=== PATIENT | female | born 1940 | race Caucasian/White ===

== ENCOUNTER 2020-12-12 10:31 | Emergency (ER) | payer MEDICARE ==
[2020-12-12] MEDS ORDERED: SODIUM CHLORIDE 0.9% 1,000 ML IV STA (11:31)
[2020-12-12] MEDS ORDERED: ONDANSETRON 4 MG/2 ML VIAL IVP STA (11:31)
[2020-12-12] MEDS ORDERED: MORPHINE SULFATE 2 MG/ML SYRINGE IVP STA (11:31)
--- NOTE | 2020-12-12 12:08 | XR ---
EXAMINATION TYPE: XR chest 2V DATE OF EXAM: 12/12/2020 COMPARISON: Chest x-ray 01/12/2017 HISTORY: Cough, Covid positive TECHNIQUE: Frontal and lateral views of the chest are obtained. FINDINGS: Patchy densities present in the bilateral lungs. There is a stable right lower lobe lung m ass present, associated increased attenuation as on prior exam, possible calcified mediastinal nodes not as conspicuous. There is no evident pneumothorax or pleural effusion. The aorta is dense. Bones a re unchanged. IMPRESSION: Correlate for pneumonia. Stable lung mass right lower lobe as described.
[2020-12-12 12:21] VITALS: RESP 20
[2020-12-12 12:21] LABS: Basophils # (A) 0.1 k/uL (0-0.2); Basophils % (A) 1 %; Eosinophils % (A) 1 %; HCT 40.6 % (34.0-46.0); HGB 13.3 gm/dL (11.4-16.0); Lymphocytes # (A) 1.1 k/uL (1.0-4.8); Lymphocytes % (A) 20 %; MCH 30.6 pg (25.0-35.0); MCHC 32.8 g/dL (31.0-37.0); MCV 93.3 fL (80.0-100.0); Mean Platelet Volume 8.2; Monocytes # (A) 0.4 k/uL (0-1.0); Monocytes % (A) 8 %; Neutrophils # (A) 3.7 k/uL (1.3-7.7); Neutrophils % (A) 69 %; Platelet Count 189 k/uL (150-450); RBC 4.35 m/uL (3.80-5.40); RDW 12.7 % (11.5-15.5); WBC 5.4 k/uL (3.8-10.6)
[2020-12-12 12:31] LABS: Albumin 3.8 g/dL (3.5-5.0); Calcium 9.1 mg/dL (8.4-10.2); Total Bilirubin 0.5 mg/dL (0.2-1.3); Total Protein 7.2 g/dL (6.3-8.2)
[2020-12-12 12:38] LABS: Potassium 4.9 mmol/L (3.5-5.1)
[2020-12-12 13:04] LABS: C Reactive Protein 18.4 mg/dL (<1.0)
--- NOTE | 2020-12-12 13:11 | ED ---
General Adult HPI - General Chief complaint: Upper Respiratory Infection Stated complaint: Covid + Time Seen by Provider: 12/12/20 10:48 Source: patient, family, RN notes reviewed Mode of arrival: ambulatory Limitations: no limitations - History of Present Illness Initial comments: 80-year-old female with a past medical history of hyperlipidemia, hypertension, diabetes mellitus presents to the emergency room for a chief complaint of not feeling well. Patient reports she has been sick for 11 days now. Patient states that she tested positive for coronary yesterday. Patient states she has a cough and congestion. She has body aches. Her upper abdomen hurts when she coughs. She denies fevers. She was not vaccinated. She denies shortness of br eath. Patient has no other complaints at this time including shortness of breath, chest pain, abdominal pain, nausea or vomiting, headache, or visual changes. - Related Data Home Medications Medication Instructions Recorded Confirmed Acetaminophen Tab [Tylenol Tab] 1,000 mg PO Q6HR PRN 12/12/20 12/12/20 Fenofibrate,Micronized 134 mg PO DAILY 12/12/20 12/12/20 [Fenofibrate] Levothyroxine Sodium [Synthroid] 112 mcg PO DAILY 12/12/20 12/12/20 Olmesartan/Hydrochlorothiazide 1 tab PO DAILY 12/12/20 12/12/20 [Olmesartan-Hctz 40-12.5 mg Tab] Pravastatin Sodium [Pravachol] 40 mg PO DAILY 12/12/20 12/12/20 Raloxifene [Evista] 60 mg PO DAILY 12/12/20 12/12/20 amLODIPine [Norvasc] 5 mg PO DAILY 12/12/20 12/12/20 glipiZIDE [Glucotrol] 5 mg PO AC-BID 12/12/20 12/12/20 metFORMIN HCL 1,000 mg PO BID 12/12/20 12/12/20 Previous Rx's Medication Instructions Recorded Benzonatate [Tessalon Perles] 200 mg PO Q8H PRN #15 cap 12/12/20 Dexamethasone [Decadron] 6 mg PO DAILY #6 tablet 12/12/20 guaiFENesin [Mucinex] 600 mg PO Q12HR PRN #20 tab 12/12/20 Allergies Allergy/AdvReac Type Severity Reaction Status Date / Time No Known Allergies Allergy Verified 12/12/20 12:34 Review of Systems ROS Statement: Those systems with pertinent positive or pertinent negative responses have been documented in the HPI. ROS Other: All systems not noted in ROS Statement are negative. Past Medical History Past Medical History: Diabetes Mellitus, Hyperlipidemia, Hypertension Additional Past Medical History / Comment(s): skin cancer History of Any Multi-Drug Resistant Organisms: None Reported Past Surgical History: No Surgical Hx Reported Smoking Status: Former smoker Past Alcohol Use History: None Reported Past Drug Use History: None Reported General Exam Limitations: no limitations General appearance: alert, in no apparent distress Head exam: Present: atraumatic Eye exam: Present: normal appearance, PERRL, EOMI. Absent: scleral icterus ENT exam: Present: normal exam, mucous membranes moist Neck exam: Present: normal inspection, full ROM. Absent: tenderness Respiratory exam: Present: normal lung sounds bilaterally, other (Coughing). Absent: respiratory distress, wheezes Cardiovascular Exam: Present: regular rate, normal rhythm, normal heart sounds Course Vital Signs 12/12/20 12/12/20 12/12/20 10:34 12:00 13:00 Temperature 98.5 F Pulse Rate 85 60 74 Respiratory 18 20 20 Rate Blood Pressure 150/71 145/88 145/81 O2 Sat by Pulse 91 L 93 L Oximetry 12/12/20 14:10 Temperature 99.2 F Pulse Rate 88 Respiratory 20 Rate Blood Pressure 145/78 O2 Sat by Pulse 94 L Oximetry Medical Decision Making - Medical Decision Making Vitals are stable. Patient well-appearing. Oxygen is 91-93% on room air. CBC is unremarkable. CMP does show evidence of dehydration, patient was given fluids. Glucose is 308, patient has a history of hyperglycemia, treated with IV fluids. Chest x-ray does show some pneumonia in a stable right lung nodule. Patient will follow up outpatient for this. Patient reevaluated continues to be 93% on room air. Patient is symptomatic for 11 days and therefore does not qualify for antibody infusion. She was given a dose of Decadron and will be put on Decadron outpatient. She should follow-up with her doctor. If she has any shortness of breath she is aware she needs to return to the emergency room.I discussed this case with attending Dr. Gray who agrees with this assessment and treatment plan. - Lab Data Result diagrams: 12/12/20 12:07 12/12/20 12:07 Lab Results 12/12/20 12/12/20 Range/Units 12:07 12:07 WBC 5.4 (3.8-10.6) k/uL RBC 4.35 (3.80-5.40) m/uL Hgb 13.3 (11.4-16.0) gm/dL Hct 40.6 (34.0-46.0) % MCV 93.3 (80.0-100.0) fL MCH 30.6 (25.0-35.0) pg MCHC 32.8 (31.0-37.0) g/dL RDW 12.7 (11.5-15.5) % Plt Count 189 (150-450) k/uL MPV 8.2 Neutrophils % 69 % Lymphocytes % 20 % Monocytes % 8 % Eosinophils % 1 % Basophils % 1 % Neutrophils # 3.7 (1.3-7.7) k/uL Lymphocytes # 1.1 (1.0-4.8) k/uL Monocytes # 0.4 (0-1.0) k/uL Eosinophils # 0.0 (0-0.7) k/uL Basophils # 0.1 (0-0.2) k/uL Sodium 135 L (137-145) mmol/L Potassium 4.9 (3.5-5.1) mmol/L Chloride 100 (98-107) mmol/L Carbon Dioxide 25 (22-30) mmol/L Anion Gap 10 mmol/L BUN 25 H (7-17) mg/dL Creatinine 0.84 (0.52-1.04) mg/dL Est GFR (CKD-EPI)AfAm 75 (>60 ml/min/1.73 sqM) Est GFR (CKD-EPI)NonAf 65 (>60 ml/min/1.73 sqM) Glucose 308 H (74-99) mg/dL Calcium 9.1 (8.4-10.2) mg/dL Total Bilirubin 0.5 (0.2-1.3) mg/dL AST 74 H (14-36) U/L ALT 37 H (4-34) U/L Alkaline Phosphatase 38 (38-126) U/L C-Reactive Protein 18.4 H (<1.0) mg/dL Total Protein 7.2 (6.3-8.2) g/dL Albumin 3.8 (3.5-5.0) g/dL Disposition Clinical Impression: COVID Disposition: HOME SELF-CARE Condition: Fair Instructions (If sedation given, give patient instructions): Coronavirus Disease 2019 (COVID-19) Additional Instructions: You were given a dose of steroids today in the emergency room so start the pills tomorrow. Take Tessalon Perles and Mucinex as needed for cough. Take over the counter vitamins such as vitamins D and zinc. Drink plenty of fluids. Follow- up with your doctor to review chest x-ray. Return to the emergency room for any worsening symptoms. Prescriptions: Dexamethasone [Decadron] 6 mg PO DAILY #6 tablet guaiFENesin [Mucinex] 600 mg PO Q12HR PRN #20 tab PRN Reason: Congestion Benzonatate [Tessalon Perles] 200 mg PO Q8H PRN #15 cap PRN Reason: Cough Is patient prescribed a controlled substance at d/c from ED?: No Referrals: Nonstaff,Physician [Primary Care Provider] - 1-2 days Time of Disposition: 13:34
[2020-12-12] MEDS ORDERED: DEXAMETHASONE SOD PHOSPHATE 4 MG/ML 1 ML VIAL IV STA (13:32)
[2020-12-12 14:24] VITALS: BP 145/78; PULSE 88; TEMP 99.2
== END 2020-12-12 14:10 | disposition home or self-care (01) ==
LOC: EC 10:31
DX: U07.1 COVID-19 (principal); I10 Essential (primary) hypertension; E11.9 Type 2 diabetes mellitus without complications; E78.5 Hyperlipidemia, unspecified; Z79.84 Long term (current) use of oral hypoglycemic drugs; Z87.891 Personal history of nicotine dependence
CPT/HCPCS: 99283; 96374; 96375 ×2; 96361; 36415; 80053; 85025; 86140; 71046; J1100; J2405; J2270

== ENCOUNTER 2024-10-05 16:34 | Emergency (ER) | payer MEDICARE ==
[2024-10-05 16:46] VITALS: TEMP 97.9
--- NOTE | 2024-10-05 18:15 | ED ---
General Adult HPI - General Chief complaint: Extremity Problem,Nontraumatic Stated complaint: L Leg pain Time Seen by Provider: 10/05/24 16:50 Source: patient, RN notes reviewed Mode of arrival: ambulatory Limitations: no limitations - History of Present Illness Initial comments: 84-year-old female with history of hypertension and diabetes presenting to the emergency department from urgent care for concerns of left knee pain and elevated blood pressure. Patient states that over the past few days she has had pain to the left knee with noted swelling. She states that she has pain with ambulation however denies pain at rest. States that when she takes Motrin the pain does subside. She denies any falls or injuries to the knee. She denies fevers, chills, history of gout, previous surgeries. Patient denies chest pain, heart palpitations, difficulty breathing, headaches. - Related Data Home Medications Medication Instructions Recorded Confirmed Acetaminophen Tab [Tylenol Tab] 1,000 mg PO Q6HR PRN 12/12/20 12/12/20 Fenofibrate,Micronized 134 mg PO DAILY 12/12/20 12/12/20 [Fenofibrate] Levothyroxine Sodium [Synthroid] 112 mcg PO DAILY 12/12/20 12/12/20 Olmesartan/Hydrochlorothiazide 1 tab PO DAILY 12/12/20 12/12/20 [Olmesartan-Hctz 40-12.5 mg Tab] Pravastatin Sodium [Pravachol] 40 mg PO DAILY 12/12/20 12/12/20 Raloxifene [Evista] 60 mg PO DAILY 12/12/20 12/12/20 amLODIPine [Norvasc] 5 mg PO DAILY 12/12/20 12/12/20 glipiZIDE [Glucotrol] 5 mg PO AC-BID 12/12/20 12/12/20 metFORMIN HCL 1,000 mg PO BID 12/12/20 12/12/20 Previous Rx's Medication Instructions Recorded Benzonatate [Tessalon Perles] 200 mg PO Q8H PRN #15 cap 12/12/20 dexAMETHasone [Decadron] 6 mg PO DAILY #6 tablet 12/12/20 guaiFENesin [Mucinex] 600 mg PO Q12HR PRN #20 tab 12/12/20 Indomethacin [Indocin] 50 mg PO TID #30 capsule 10/05/24 Allergies Allergy/AdvReac Type Severity Reaction Status Date / Time No Known Allergies Allergy Verified 10/05/24 16:46 Review of Systems ROS Statement: Those systems with pertinent positive or pertinent negative responses have been documented in the HPI. ROS Other: All systems not noted in ROS Statement are negative. Past Medical History Past Medical History: Diabetes Mellitus, Hyperlipidemia, Hypertension Additional Past Medical History / Comment(s): skin cancer History of Any Multi-Drug Resistant Organisms: None Reported Past Surgical History: No Surgical Hx Reported Past Psychological History: No Psychological Hx Reported Smoking Status: Former smoker Past Alcohol Use History: None Reported Past Drug Use History: None Reported General Exam Limitations: no limitations General appearance: alert, in no apparent distress Neck exam: Present: normal inspection. Absent: tenderness, meningismus, lym phadenopathy Respiratory exam: Present: normal lung sounds bilaterally. Absent: respiratory distress, wheezes, rales, rhonchi, stridor Cardiovascular Exam: Present: regular rate, normal rhythm, normal heart sounds. Absent: systolic murmur, diastolic murmur, rubs, gallop, clicks GI/Abdominal exam: Present: soft, normal bowel sounds. Absent: distended, tenderness, guarding, rebound, rigid Left Knee exam: Present: full ROM, tenderness, effusion. Absent: deformity, crepitus, dislocation, erythema Neurovascular tendon exam: Present: no vascular compromise. Absent: pulse deficit Back exam: Present: normal inspection Course Vital Signs 10/05/24 10/05/24 10/05/24 16:42 18:30 21:05 Temperature 97.9 F 97.9 F Pulse Rate 82 77 77 Respiratory 20 18 18 Rate Blood Pressure 186/75 165/74 182/68 O2 Sat by Pulse 95 99 97 Oximetry Medical Decision Making - Medical Decision Making Was pt. sent in by a medical professional or institution (, PA, ACCESS MANAGER, urgent care, hospital, or snf...) When possible be specific @ -No Did you speak to anyone other than the patient for history (EMS, parent, family, police, friend...)? What history was obtained from this source @ -No Did you review nursing and triage notes (agree or disagree)? Why? @ -I reviewed and agree with nursing and triage notes Were old charts reviewed (outside hosp., previous admission, EMS record, old EKG, old radiological studies, urgent care reports/EKG's, snf records)? Report findings @ -No old charts were reviewed Differential Diagnosis (chest pain, altered mental status, abdominal pain women, abdominal pain men, vaginal bleeding, weakness, fever, dyspnea, syncope, headache, dizziness, GI bleed, back pain, seizure, CVA, palpatations, mental health, musculoskeletal)? @ -Differential Musculoskeletal Muscular strain, contusion, ligament sprain, fracture, arthritis, septic arthritis, bursitis, cellulitis, muscle spasm, nerve compression, DVT, arterial occlusion, herpes zoster, electrolyte abnormality, tumor.... This is not meant to be in all inclusive list EKG interpreted by me (3pts min.). @None X-rays interpreted by me (1pt min.). @ -X-ray of the left knee reveals no acute osseous abnormality, moderate joint e ffusion CT interpreted by me (1pt min.). @ -None done U/S interpreted by me (1pt. min.). @ -Ultrasound imaging of the left lower extremity no evidence of DVT. What testing was considered but not performed or refused? (CT, X-rays, U/S, labs)? Why? @ -None What meds were considered but not given or refused? Why? @ -None Did you discuss the management of the patient with other professionals (professionals i.e. , PA, ACCESS MANAGER, lab, RT, psych nurse, licensed social worker, airplane rigger, teacher, air support control officer, sample case porter)? Give summary @ -No Was smoking cessation discussed for >3mins.? @ -No Was critical care preformed (if so, how long)? @ -No Were there social determinants of health that impacted care today? How? (Homelessness, low income, unemployed, alcoholism, drug addiction, transportation, low edu. Level, literacy, decrease access to med. care, retirement, rehab)? @ -No Was there de-escalation of care discussed even if they declined (Discuss DNR or withdrawal of care, Hospice)? DNR status @ -No What co-morbidities impacted this encounter? (DM, HTN, Smoking, COPD, CAD, Cancer, CVA, ARF, Chemo, Hep., AIDS, mental health diagnosis, sleep apnea, morbid obesity)? @ -None Was patient admitted / discharged? Hospital course, mention meds given and route, prescriptions, significant lab abnormalities, going to OR and other pertinent info. @ -Discharge. 84-year female presenting with knee pain and elevated blood pressure. Patient's blood pressure is 186/75 on arrival. Patient is as ymptomatic. There is noted left knee effusion with no erythema. Mild pain to palpation of the medial and lateral knee patient was offered pain medication however was declined. Labs reveal mildly elevated uric acid at 8.1. X-ray imaging of the knee and ultrasound imaging is unremarkable. Patient will be treated with indomethacin, NSAID, for pain and struck to follow-up with PCP which she is provided with pamphlet for PCP. Physical exam is not concerning for infection therefore patient has not started antibiotics however she is instructed to return parameters if area becomes warm to the touch erythematous or she begins to experience fevers or chills. Patient is verbalized understanding. Case discussed with my attending Dr. Ng Undiagnosed new problem with uncertain prognosis? @ -No Drug Therapy requiring intensive monitoring for toxicity (Heparin, Nitro, Insulin, Cardizem)? @ -No Were any procedures done? @ -No Diagnosis/symptom? @ knee pain, knee effusion Acute, or Chronic, or Acute on Chronic? @ -Acute Uncomplicated (without systemic symptoms) or Complicated (systemic symptoms)? @ -Uncomplicated Side effects of treatment? @ -No Exacerbation, Progression, or Severe Exacerbation? @ -No Poses a threat to life or bodily function? How? (Chest pain, USA, MD, pneumonia, PE, COPD, DKA, ARF, appy, cholecystitis, CVA, Diverticulitis, Homicidal, Suicidal, threat to staff... and all critical care pts) @ -No - Lab Data Result diagrams: 10/05/24 18:44 10/05/24 18:44 Lab Results 10/05/24 10/05/24 10/05/24 Range/Units 18:44 18:44 18:44 WBC 8.83 (4.50-10.00) 10*3/uL RBC 4.36 (4.10-5.20) 10*6/uL Hgb 13.0 (12.0-15.0) g/dL Hct 39.8 (37.2-46.3) % MCV 91.3 (80.0-97.0) fL MCH 29.8 (27.0-32.0) pg MCHC 32.7 (32.0-37.0) g/dL Plt Count 275 (140-440) 10*3/uL MPV 10.6 (9.5-12.2) fL Immature Gran % (Auto) 0.3 % Neutrophils % 67.1 % Lymphocytes % 23.1 % Monocytes % 6.0 % Eosinophils % 2.5 % Basophils % 1.0 % Immature Gran # 0.03 (0.00-0.04) 10*3/uL Neutrophils # 5.92 (1.80-7.70) 10*3/uL Lymphocytes # 2.04 (0.90-5.00) 10*3/uL Monocytes # 0.53 (0.20-1.00) 10*3/uL Eosinophils # 0.22 (0.04-0.35) 10*3/uL Basophils # 0.09 (0.00-0.10) 10*3/uL Sodium 138 (137-145) mmol/L Potassium 4.8 (3.5-5.1) mmol/L Chloride 102 (98-107) mmol/L Carbon Dioxide 22 (22-30) mmol/L Anion Gap 14 mmol/L BUN 37 H (7-17) mg/dL Creatinine 1.16 H (0.52-1.04) mg/dL Est GFR (CKD-EPI)AfAm 50 (>60 ml/min/1.73 sqM) Est GFR (CKD-EPI)NonAf 43 (>60 ml/min/1.73 sqM) Glucose 162 H (74-99) mg/dL Plasma Lactic Acid Ke 1.5 (0.7-2.0) mmol/L Uric Acid 8.1 H (3.7-7.4) mg/dL Calcium 10.2 (8.4-10.2) mg/dL Total Bilirubin 0.3 (0.2-1.3) mg/dL AST 21 (14-36) U/L ALT 14 (4-34) U/L Alkaline Phosphatase 46 (38-126) U/L C-Reactive Protein <0.5 (<1.0) mg/dL Total Protein 8.1 (6.3-8.2) g/dL Albumin 4.7 (3.5-5.0) g/dL Disposition Clinical Impression: Knee pain, Effusion, left knee Disposition: HOME SELF-CARE Condition: Good Instructions (If sedation given, give patient instructions): Knee Pain (ED) Additional Instructions: Please return to the Emergency Department if symptoms worsen or any other concer ns. Prescriptions: Indomethacin [Indocin] 50 mg PO TID #30 capsule Is patient prescribed a controlled substance at d/c from ED?: No Referrals: Nonstaff,Physician [Primary Care Provider] - 1-2 days Forms: Area PCPs Time of Disposition: 20:24
[2024-10-05 18:33] VITALS: PULSE 77; RESP 18
--- NOTE | 2024-10-05 18:56 | XR ---
EXAMINATION TYPE: XR knee complete LT DATE OF EXAM: 10/05/2024 6:27 PM COMPARISON: None. CLINICAL INDICATION: Female, 84 years old with history of swelling, pain, denies injury, pain TECHNIQUE: 3 view(s) obtained. FINDINGS: Joint spaces are preserved. No acute fracture or dislocation evident. Moderate joint effusion may be present.. Anterior superior patellar spur is present. Medullary infarct may be within the distal meta physeal femur. This could be followed with MRI. IMPRESSION: 1. No acute osseous abnormality left knee. 2. Moderate joint effusion. 3. Consider follow-up MRI left knee. [facility], , 10/05/2024 6:54 PM
[2024-10-05 18:59] LABS: Basophils # (A) 0.09 10*3/uL (0.00-0.10); Basophils % (A) 1.0 %; Eosinophils # (A) 0.22 10*3/uL (0.04-0.35); Eosinophils % (A) 2.5 %; HCT 39.8 % (37.2-46.3); HGB 13.0 g/dL (12.0-15.0); Lymphocytes # (A) 2.04 10*3/uL (0.90-5.00); Lymphocytes % (A) 23.1 %; MCH 29.8 pg (27.0-32.0); MCHC 32.7 g/dL (32.0-37.0); MCV 91.3 fL (80.0-97.0); Monocytes # (A) 0.53 10*3/uL (0.20-1.00); Monocytes % (A) 6.0 %; Neutrophils # (A) 5.92 10*3/uL (1.80-7.70); Neutrophils % (A) 67.1 %; Platelet Count 275 10*3/uL (140-440); RBC 4.36 10*6/uL (4.10-5.20); RDW 12.5 % (11.5-14.5); WBC 8.83 10*3/uL (4.50-10.00)
[2024-10-05 19:24] LABS: ALT 14 U/L (4-34); AST 21 U/L (14-36); African American GFR (CKD) 50 (>60 ml/min/1.73 sqM); Albumin 4.7 g/dL (3.5-5.0); Alkaline Phosphatase 46 U/L (38-126); Anion Gap 14 mmol/L; Blood Urea Nitrogen 37 mg/dL (7-17); Calcium 10.2 mg/dL (8.4-10.2); Carbon Dioxide 22 mmol/L (22-30); Chloride 102 mmol/L (98-107); Glucose 162 mg/dL (74-99); Non-African American GFR(CKD) 43 (>60 ml/min/1.73 sqM); Potassium 4.8 mmol/L (3.5-5.1); Sodium 138 mmol/L (137-145); Total Protein 8.1 g/dL (6.3-8.2); Uric Acid 8.1 mg/dL (3.7-7.4)
--- NOTE | 2024-10-05 19:52 | US ---
EXAMINATION TYPE: US venous doppler duplex LE LT DATE OF EXAM: 10/05/2024 7:39 PM COMPARISON: NONE CLINICAL INDICATION: Female, 84 years old with history of swelling, pain, r/o clot; patient states le ft leg swelling and pain at knee for 1 week. no hx dvt, not on thinners, Pain TECHNIQUE: The lower extremity deep venous system is examined utilizing real time linear array sonog aashish with graded compression, color doppler sonography, and spectral doppler. SIDE PERFORMED: Left FINDINGS: VESSELS IMAGED: Common Femoral Vein Deep Femoral Vein Greater Saphenous Vein * Femoral Vein Popliteal Vein Small Saphenous Vein * Proximal Calf Veins (* superficial vessels) Left Leg: Negative for DVT, Color Doppler imaging shows patency of the vessels. Spectral waveforms a re within normal limits. IMPRESSION: 1. Left lower extremity ultrasound negative for deep venous thrombosis [facility], , 10/05/2024 7:49 PM
[2024-10-05 21:07] VITALS: BP 182/68
== END 2024-10-05 21:05 | disposition home or self-care (01) ==
LOC: EC 16:34
DX: M25.562 Pain in left knee (principal); M25.462 Effusion, left knee; Z87.891 Personal history of nicotine dependence
CPT/HCPCS: 36415; 80053; 83605; 84550; 85025; 86140; 99284